=== PATIENT | female | born 1980 | race Native Hawaiian/Other Pacific Islander ===

== ENCOUNTER 2017-02-27 11:38 | Outpatient (CLI) | payer OTHER ==
--- NOTE | 2017-02-27 13:20 | XRay Report ---
CHEST TWO VIEWS: 02/27/17 11:38:00 CLINICAL: Chest pain and upper back pain. COMPARISON: None FINDINGS: Normal heart and pulmonary vasculature. The lungs are normally expanded and clear.However, the costophrenic angles are mildly blunted on the frontal view and this is more prominent on the right side. Mild dextroscoliosis. Mild degenerative change in spine. No fracture. IMPRESSION: Mild blunting of the costophrenic angles, right greater than left which may be attributed to tiny pleural effusions or scarring. No CHF or pneumonia.
== END 2017-02-27 11:39 | disposition home or self-care (01) ==
LOC: SPVIMAG 11:38
PROVIDERS: ATTEND Family Medicine Adult Medicine
DX: R07.9 Chest pain, unspecified (principal); M41.84 Other forms of scoliosis, thoracic region; M47.894 Other spondylosis, thoracic region
CPT/HCPCS: 71020

== ENCOUNTER 2018-08-20 09:44 | Outpatient (CLI) | payer OTHER ==
--- NOTE | 2018-08-20 11:24 | Mammography Report ---
BILATERAL DIGITAL SCREENING MAMMOGRAM with CAD: 08/20/18 09:44:00 CLINICAL: Routine screening. COMPARISON:10/01/15 FINDINGS: The breasts are heterogeneously dense, which may obscure small masses. No mass, architectural distortion or suspicious calcifications. IMPRESSION: No mammographic evidence of malignancy. BI-RADS CATEGORY: 1 - - Negative RECOMMENDATION: Routine mammographic screening in one year. COMMENT: Patient follow-up letters are generated by our [employer] application.
== END 2018-08-20 09:45 | disposition home or self-care (01) ==
LOC: SPVWC 09:44
PROVIDERS: ATTEND Family Medicine Adult Medicine
DX: Z12.31 Encounter for screening mammogram for malignant neoplasm of breast (principal)
CPT/HCPCS: 77067

== ENCOUNTER 2019-10-01 10:25 | Outpatient (CLI) | payer OTHER ==
--- NOTE | 2019-10-01 11:39 | Mammography Report ---
DIGITAL SCREENING MAMMOGRAM WITH CAD, 10/01/2019 INDICATION: Routine screening mammography. TECHNIQUE: Digital bilateral 2D mammography was obtained in the craniocaudal and mediolateral obliq ue projections. This examination was interpreted with the benefit of Computer-Aided Detection analysi s. COMPARISON: 08/20/2018, 10/01/2015 FINDINGS: Breast Density: The breasts are heterogeneously dense, which may obscure small masses. There is no evidence of dominant mass, suspicious calcifications or architectural distortion in eithe r breast. IMPRESSION: Follow up recommendation: Routine yearly BI-RADS Category 1: Negative. A "normal" or negative report should not discourage follow up or biopsy of a clinically significant f inding. A written summary of these findings will be mailed to the patient. The patient will be entered into a mammography reporting system which will generate a reminder letter for the patient's next appointmen t at the appropriate interval. The [employer] recommends yearly mammograms starting at age 40 and continuing as l elsi as a woman is in good health. Breast MRI is recommended for women with an approximate 20-25% or greater lifetime risk of breast cancer, including women with a strong family history of breast or ova swapnil cancer or who have been treated for Hodgkin's disease. Signer Name: Faisal Saravia MD Signed: 10/01/2019 11:35 AM Workstation Name: [id number]
== END 2019-10-01 10:26 | disposition home or self-care (01) ==
LOC: SPVWC 10:25
PROVIDERS: ATTEND Family Medicine Adult Medicine
DX: Z12.31 Encounter for screening mammogram for malignant neoplasm of breast (principal)
CPT/HCPCS: 77067